=== PATIENT | male | born 2000 | race Caucasian/White ===

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

== ENCOUNTER 2019-02-02 18:42 | Emergency (ER) | payer OTHER ==
[~2019-02-02] VITALS: Ht 182.9 cm; Wt 104.5 kg
[2019-02-02 20:48] VITALS: BP 123/61
== END 2019-02-02 21:23 | disposition home or self-care (01) ==
LOC: EMS 18:44
DX: S01.01XA Laceration without foreign body of scalp, initial encounter (principal); S20.311A Abrasion of right front wall of thorax, initial encounter; M25.551 Pain in right hip; V19.9XXA Pedal cyclist (driver) (passenger) injured in unspecified traffic accident, initial encounter; Y93.I9 Activity, other involving external motion; Y92.89 Other specified places as the place of occurrence of the external cause; Y99.8 Other external cause status
CPT/HCPCS: 70450; 71101; 72125; 73502

== ENCOUNTER 2019-02-12 19:50 | Emergency (ER) | payer OTHER ==
[~2019-02-12] VITALS: Ht 182.9 cm; Wt 100.0 kg
[2019-02-12 22:30] VITALS: BP 121/70
== END 2019-02-12 22:47 | disposition home or self-care (01) ==
LOC: EMS 19:50
DX: S01.01XD Laceration without foreign body of scalp, subsequent encounter (principal); Z48.02 Encounter for removal of sutures; W18.39XD Other fall on same level, subsequent encounter

== ENCOUNTER 2021-08-26 07:15 | Emergency (ER) | payer OTHER ==
[~2021-08-26] VITALS: Ht 182.9 cm; Wt 113.6 kg
[2021-08-26] MEDS ORDERED: FAMOTIDINE 20 MG TABLET PO ONE (07:45)
[2021-08-26] MEDS ORDERED: MAG HYDROX/AL HYDROX/SIMETH 30 ML SUSP UDCUP PO ONE (07:45)
[2021-08-26] MEDS ORDERED: ACETAMINOPHEN 500 MG TABLET PO ONE (07:45)
[2021-08-26 07:57] LABS: BASOPHILS % (AUTO) 0.2 % (0.0-2.0); EOSINOPHILS % (AUTO) 0.2 % (1.0-6.0); HEMATOCRIT 43.1 % (41-53); HEMOGLOBIN 14.7 g/dL (13.5-17.5); LYMPHOCYTES # (AUTO) 1.3 K/uL (1.0-4.8); LYMPHOCYTES % (AUTO) 8.6 % (22.0-44.0); MEAN CORPUSCULAR HEMOGLOBIN 29.3 pg (26.0-34.0); MEAN CORPUSCULAR HGB CONC 34.1 G/dL (31.0-37.0); MEAN CORPUSCULAR VOLUME 86 fL (80-100); MONOCYTES # (AUTO) 1.6 K/uL (0.1-1.0); MONOCYTES % (AUTO) 10.8 % (2.0-9.0); NEUTROPHILS % (AUTO) 80.2 % (40.0-70.0); PLATELET COUNT (AUTO) 237 K/uL (150-450); RED BLOOD CELL COUNT(AUTO) 5.01 MIL/uL (4.50-5.90); RED CELL DISTRIBUTION WIDTH 13.9 % (11.5-14.5)
[2021-08-26 08:09] LABS: ANION GAP 11 mmol/L (8-16); CALCIUM, TOTAL 8.7 mg/dL (8.8-10.5); CARBON DIOXIDE 23 mmol/L (22-29); CHLORIDE 99 mmol/L (98-107); CREATININE 0.84 mg/dL (0.60-1.30); GLOMERULAR FILTR. RATE CALC > 60 mL/min (>60); GLUCOSE,RANDOM 117 mg/dL (70-110); POTASSIUM 3.5 mmol/L (3.5-5.1); SODIUM SERUM 133 mmol/L (136-145); UREA NITROGEN, BLOOD 10 mg/dL (7-18)
[2021-08-26 08:20] LABS: B-TYPE NATRIURETIC PEPTIDE < 5 pg/mL (0-100)
[2021-08-26 08:33] LABS: ALANINE AMINOTRANSFERASE 85 U/L (12-78); ALBUMIN 3.6 g/dL (3.4-5.0); ALKALINE PHOSPHATASE 78 U/L (46-116); ASPARTATE AMINOTRANSFERASE 29 U/L (15-37); BILIRUBIN,TOTAL 0.5 mg/dL (0.1-1.0); CREATINE KINASE, TOTAL ONLY 112 U/L (39-308); LIPASE 119 U/L (73-393); TOTAL PROTEIN, SERUM 8.5 g/dL (6.4-8.2)
[2021-08-26 13:05] VITALS: BP 115/78
== END 2021-08-26 13:07 | disposition home or self-care (01) ==
LOC: EMS 07:15
DX: R07.9 Chest pain, unspecified (principal)
CPT/HCPCS: 71045; 80053; 82550; 83690; 83880; 84484; 85025; 93005; 99285; 36415-L1; 36415-TC